=== PATIENT | female | born 1985 | race American Indian/Alaskan Native ===

== ENCOUNTER 2017-11-18 13:21 | Emergency (ER) | payer MEDICAID ==
[2017-11-18 13:32] VITALS: BP 107/63
--- NOTE | 2017-11-18 14:15 | XRay Report ---
CHEST 2 VIEWS INDICATION: Shortness of breath. COMPARISON: None similar at this institution. FINDINGS: PA and lateral chest radiographs demonstrate normal cardiomediastinal silhouette. Clear lungs. Intact bones. CONCLUSION: No acute disease in the chest. Thank you for the opportunity to participate in this patient's care.
--- NOTE | 2017-11-18 16:03 | Emergency Department Report ---
Minor Respiratory - HPI Chief Complaint: Upper Respiratory Infection Stated Complaint: LYLE Time Seen by Provider: 11/18/17 16:01 Duration: 4 Days Pain Location: Chest Severity: mild Minor Respiratory: Yes Able to Tolerate Fluids, Yes Cough, Yes Chest Pain (with coughing and palpation), No Rhinorrhea, No Sore Throat, No Ear Pain, No Sick Contacts, No Hemoptysis, No Shortness of Breath, No Fever Other History: this is a 32-year-old female with no prior medical history who presents to the ED complaining of cough and intermittent shortness of breath. Patient states she has left-sided upper chest pain for the past 2 months but in the past 4 days has gotten worse. Patient states that she's been having intermittent coughing, chest congestion. Patient states she's been taking TheraFlu with minor relief. Patient states she had an appointment with her primary care set up but has been postponed to severe weather. She states that chest pain is aggravated with coughing. She states intermittent cough and nonproductive dry. She denies fever, nausea, vomiting, abdominal pain, headache , blurry vision or dizziness. ED Review of Systems ROS: Stated complaint: LYLE Other details as noted in HPI Constitutional: denies: chills, fever Eyes: denies: eye pain, eye discharge, vision change ENT: denies: ear pain, throat pain Respiratory: cough. denies: shortness of breath, wheezing Cardiovascular: chest pain (with coughing). denies: palpitations Endocrine: no symptoms reported Gastrointestinal: denies: abdominal pain, nausea, diarrhea Genitourinary: denies: urgency, dysuria, discharge Musculoskeletal: denies: back pain, joint swelling, arthralgia Skin: denies: rash, lesions Neurological: denies: headache, weakness, paresthesias Psychiatric: denies: anxiety, depression Hematological/Lymphatic: denies: easy bleeding, easy bruising ED Past Medical Hx - Past Medical History Previous Medical History?: No - Surgical History Past Surgical History?: No - Social History Smoking Status: Never Smoker - Medications Home Medications: Home Medications Medication Instructions Recorded Confirmed Last Taken Type ALBUTEROL Inhaler [ProAir HFA 2 puff IH QID PRN #1 pump 11/18/17 Unknown Rx Inhaler] Acetamin/Codeine 120-12Mg/5 ml 5 ml PO TID PRN #80 ml 11/18/17 Unknown Rx [Tylenol/Codeine] predniSONE [Deltasone] 10 mg PO QDAY #5 tab 11/18/17 Unknown Rx Minor Respiratory Exam - Exam General: Vital signs noted. No distress. Alert and acting appropriately. HEENT: Yes Moist Mucous Membranes, No Pharyngeal Erythema, No Pharyngeal Exudates, No Rhinorrhea, No Conjuctival Injection, No Frontal Tenderness, No Maxillary Tenderness Ear: Neither TM Bulge, Neither TM Erythema, Neither EAC Pain, Neither EAC Discharge Neck: Yes Supple, No Adenopathy Lungs: Yes Good Air Exchange, No Wheezes, No Ronchi, No Stridor, No Cough, No Labored Respirations, No Retractions, No Use of Accessory Muscles, No Other Abnormal Lung Sounds Heart: Yes Regular (tenderness to palpation of the left upper chest), No Murmur Abdomen: Yes Normal Bowel Sounds, No Tenderness, No Peritoneal Signs Skin: No Rash, No Edema Neurologic: Alert and oriented, no deficits. Musculoskeletal: Unremarkable. ED Course Vital Signs 11/18/17 13:28 Temperature 99.0 F Pulse Rate 111 H Respiratory 20 Rate Blood Pressure 107/63 O2 Sat by Pulse 92 Oximetry ED Medical Decision Making - Radiology Data Radiology results: report reviewed cc: ED DOC, Fluoro Time In Minutes: CHEST 2 VIEWS INDICATION: Shortness of breath. COMPARISON: None similar at this institution. FINDINGS: PA and lateral chest radiographs demonstrate normal cardiomediastinal silhouette. Clear lungs. Intact bones. CONCLUSION: No acute disease in the chest. Thank you for the opportunity to participate in this patient's care. Transcribed By: RS Dictated By: DIGNA ZEPEDA MD Electronically Authenticated By: DIGNA ZEPEDA MD Signed Date/Time: 11/18/17 1404 - Medical Decision Making Patient is a 33-year-old female who presents to the ED with costochondral chest pain with bronchitis. ED course: Chest x-ray ordered, influenza A and the ordered. Chest x-ray negative, influenza A and B negative . Critical care attestation.: If time is entered above; I have spent that time in minutes in the direct care of this critically ill patient, excluding procedure time. ED Disposition Clinical Impression: Bronchitis, Costochondral chest pain Disposition: TO HOME OR SELFCARE Is pt being admited?: No Does the pt Need Aspirin: No Condition: Stable Instructions: Chronic Bronchitis (ED), Costochondritis (ED), Chest Pain (ED) Additional Instructions: Make sure to follow up with the primary care physician as discussed. Take all your medications as you've been prescribed. If you have any worsening symptoms or develop new symptoms please return to ED immediately. Prescriptions: Acetamin/Codeine 120-12Mg/5 ml [Tylenol/Codeine] 5 ml PO TID PRN #80 ml PRN Reason: Pain ALBUTEROL Inhaler [ProAir HFA Inhaler] 2 puff IH QID PRN #1 pump PRN Reason: Shortness Of Breath predniSONE [Deltasone] 10 mg PO QDAY #5 tab Referrals: BORIS GARCES MD [Primary Care Provider] - 3-5 Days MARIA L WHELAN MD [Staff Physician] - 3-5 Days [facility] [Outside] - 3-5 Days [facility] [Outside] - 3-5 Days Forms: Work/School Release Form(ED) Time of Disposition: 18:00
[2017-11-18] MEDS ORDERED: MOTRIN PO ONE (16:47)
[2017-11-18] MEDS ORDERED: ROBITUSSIN PO ONE (16:47)
[2017-11-18] MEDS ORDERED: DELTASONE PO ONE (16:47)
== END 2017-11-18 18:05 | disposition home or self-care (01) ==
LOC: ED 13:21
DX: J40 Bronchitis, not specified as acute or chronic (principal); M94.0 Chondrocostal junction syndrome [Tietze]
CPT/HCPCS: 36415; 71046; 85379; 87400; 99283; J7512